=== PATIENT | female | born 1980 | race Caucasian/White ===

== ENCOUNTER 2016-11-21 12:05 | Emergency (ER) | payer MEDICARE, MEDICAID ==
--- NOTE | ~2016-11-21 | ER ---
PATIENT'S NAME: NABIL CISSE [facility] AGE: 36 Y [address] ROOM: [place] [address] LOCATION: ED ADMIT DATE: 11/21/2016 ER/Outpatient Report DISCHARGE DATE: 11/21/2016 FAMILY PHYSICIAN: Carlos Manuel Guzmán MD ATTENDING PHYSICIAN: Patrick Burns CHIEF COMPLAINT: Seizure. HISTORY OF PRESENT ILLNESS: The patient was at work today when she had a seizure. She has a known seizure disorder. She is about to start her menses and reports that she typically does get breakthrough seizures around the time of her menses. She has been having multiple small seizures over the last 2 days. Today, she was at work, she did fall and struck her head on a rack at work. That caused some bleeding and that is part of what brought her in. EMS did bring her in and stated that she was postictal on their arrival, but otherwise doing okay. The seizure was unwitnessed, the exact duration is unknown, but the patient appears to be doing relatively well. She denies any other issues and states she is taking her Vimpat and topiramate as instructed. No other acute issues. PAST MEDICAL HISTORY: Documented on the record and reviewed by me. SOCIAL HISTORY: Documented on the record and reviewed by me. MEDICATIONS: Documented on the record and reviewed by me. ALLERGIES: DOCUMENTED ON THE RECORD AND REVIEWED BY ME. REVIEW OF SYSTEMS: All systems reviewed and negative except as noted in the HPI. PHYSICAL EXAMINATION: VITAL SIGNS: Blood pressure 134/65, pulse 81, respiratory rate is 20, temperature 99.2, SpO2 is 100% on room air. GENERAL: Age-appropriate female, in no obvious pain or distress with tired appearance, but otherwise appropriate. NEURO: The patient is awake, interactive, and appropriate. Slowed mentation slightly. She has no focal asymmetry on exam, no seizure-like activity. She is oriented to person, place, and time. She follows commands in all extremities. Reflexes are normal. PATIENT'S NAME: NABIL CISSE [facility] AGE: 36 Y [address] ROOM: [place] [address] LOCATION: [facility] ADMIT DATE: 11/21/2016 ER/Outpatient Report DISCHARGE DATE: 11/21/2016 FAMILY PHYSICIAN: Carlos Manuel Guzmán MD ATTENDING PHYSICIAN: Patrick Bruns HEENT: Normocephalic, grossly atraumatic except for a 1-cm laceration over the orbital brim, lateral to the right eye that is full thickness. Scant active bleeding. Extraocular movements are intact. No palpable deformities otherwise. The lids are normal. The pupils are PERRL. The nasal mucosa is moist and pink. Oropharynx is clear without erythema or exudates. NECK: Supple. Trachea is midline. CHEST/HEART: Regular rate and rhythm with no murmurs. LUNGS: Clear to auscultation bilaterally with no rhonchi, wheezes, or rales. ABDOMEN: Soft, nontender, and nondistended. No rebound or guarding. BACK: Nontender to palpation throughout the spine. No paraspinal tenderness, no CVA tenderness. EXTREMITIES: Warm and well perfused with no obvious abnormalities or deformities. SKIN: Warm, dry, and intact. LABORATORY DATA AND X-RAYS: No imaging was obtained for this patient. Labs were obtained. Sodium 148, potassium 3.8, chloride 118, CO2 is 19, BUN is 14, GFR is greater than 60. LFTs are within normal limits. Free T4 is 0.9. TSH is 2.7. WBC is 6.7, hemoglobin 13.5, platelets are 237. IMPRESSION: 1. Breakthrough seizures. 2. Mild hyponatremia. 3. Eye laceration. EMERGENCY DEPARTMENT COURSE: The patient was evaluated as above. She has clearly had a breakthrough seizure. The wound was cleaned, irrigated, found to be free of foreign matter, and was ultimately glue closed in a multilayer fashion without anesthesia. The patient tolerated that well. No orbital involvement. She remained otherwise stable. She is able to take hydration. We will encourage her to increase her water intake today to deal with her hyponatremia. She needs to follow up with her usual provider if not improving. All questions were answered and the patient was discharged in good condition. She does not warrant head imaging as this is a ground-level fall secondary to a seizure. No other acute intervention is warranted. MD MARILYN DE LA ROSA/mc PATIENT'S NAME: NABIL CISSE [facility] AGE: 36 Y [address] ROOM: [place] [address] LOCATION: [facility] ADMIT DATE: 11/21/2016 ER/Outpatient Report DISCHARGE DATE: 11/21/2016 FAMILY PHYSICIAN: Carlos Manuel Guzmán MD ATTENDING PHYSICIAN: Patrick Burns /[id number] d: 11/21/16 2257 t: 11/22/16 1054, OUTPATIENT REPORT
[2016-11-21 13:06] LABS: BASOPHIL % 0.6 %; EOSINOPHIL # 0.2 K/uL (0.0-0.5); EOSINOPHIL % 3.1 %; HEMATOCRIT 41.3 % (33.0-46.0); HEMOGLOBIN 13.5 g/dL (11.0-15.0); IMMATURE GRANULOCYTE # 0.1 K/uL (0.0-0.3); IMMATURE GRANULOCYTE % 0.7 %; LYMPHOCYTE # 1.6 K/uL (0.8-4.0); LYMPHOCYTE % 23.8 %; MCH 28.8 pg (27.0-34.0); MCHC 32.7 gm/dL (32.0-36.5); MCV 88.2 fl (83.0-98.0); MONOCYTE # 0.5 K/uL (0.0-1.0); MONOCYTE % 6.9 %; MPV 9.6 fl (9.4-12.4); NEUTROPHIL # (ANC) 4.4 K/uL (1.8-7.8); NEUTROPHIL % 64.9 %; NRBC % 0 /100WBC (0-0.00); PLATELET COUNT 237 K/uL (150-450); RBC 4.68 M/uL (3.50-5.50); RDW-CV 13.6 % (11.9-14.6); WBC 6.7 K/uL (4.0-11.0)
[2016-11-21 13:33] LABS: CHLORIDE 118 mMol/L (96-110); POTASSIUM 3.8 mEq/L (3.7-5.1); SODIUM 148 mEq/L (135-145)
[2016-11-21 13:34] LABS: ALBUMIN 3.6 gm/dL (3.5-5.0); ALK PHOS 57 IU/L (33-138); ALT 27 IU/L (12-78); ANION GAP 14.8 (10.0-19.0); AST 14 IU/L (10-40); BLOOD UREA NITROGEN 14 mg/dL (6-24); CO2 19 mMol/L (22-32); CREATININE 0.8 mg/dL (0.5-1.1); ESTIMATED GFR (MDRD EQUATION) > 60; TOTAL BILIRUBIN 0.2 mg/dL (0.0-1.5); TOTAL PROTEIN 6.8 g/dL (6.0-8.4)
== END 2016-11-21 13:55 | disposition disaster alternative care site (69) ==
LOC: GMED 12:05
PROVIDERS: Emergency Medicine
PROC: 0HQ1XZZ Repair Face Skin, External Approach (ICD-10-PCS; principal; 2016-11-21)
DX: G40.909 Epilepsy, unspecified, not intractable, without status epilepticus (principal); S05.41XA Penetrating wound of orbit with or without foreign body, right eye, initial encounter; E87.1 Hypo-osmolality and hyponatremia; Z23 Encounter for immunization; W22.8XXA Striking against or struck by other objects, initial encounter; Y92.69 Other specified industrial and construction area as the place of occurrence of the external cause; Y99.0 Civilian activity done for income or pay

== ENCOUNTER → 2016-11-21 | Outpatient (CLI) | payer MEDICARE, MEDICAID ==
[~2016-11-21] MED LIST: KEPPRA500 MG PO; TOPAMAX100 MG PO; VIMPAT100 MG PO; VIMPAT200 MG PO
== END | disposition disaster alternative care site (69) ==
LOC: GAMB 11:48
DX: R56.9 Unspecified convulsions (principal); S05.31XA Ocular laceration without prolapse or loss of intraocular tissue, right eye, initial encounter; Z79.899 Other long term (current) drug therapy; X58.XXXA Exposure to other specified factors, initial encounter
CPT/HCPCS: A0422; A0425; A0427

== ENCOUNTER 2016-11-25 07:35 | Emergency (ER) | payer MEDICARE, MEDICAID ==
--- NOTE | ~2016-11-25 | ER ---
PATIENT'S NAME: NABIL CISSE [facility] AGE: 36 Y [address] ROOM: [place] [address] LOCATION: [facility] ADMIT DATE: 11/25/2016 ER/Outpatient Report DISCHARGE DATE: 11/25/2016 FAMILY PHYSICIAN: Carlos Manuel Guzmán MD ATTENDING PHYSICIAN: Patrick Burns CHIEF COMPLAINT: Fall with laceration. HISTORY OF PRESENT ILLNESS: The patient was at home this morning when she was getting out of bed. Upon getting out of bed, she states that her legs gave out on her. She denies loss of consciousness, palpitations, unusual feelings, or anything else and just stated that she felt like her legs were asleep for just a little bit. She now feels completely normal. She did hit her right eyebrow region and that she was concerned about possibly breaking open recent wound there. She suffers from a seizure disorder. She has been having multiple seizures this last week which is normal for her, just before her period starts which should be in the next few days. She denies any persistent headache or vision changes associated with this. She is always returned to baseline between her seizures. No other acute issues. PAST MEDICAL HISTORY: Documented on the record and reviewed by me. SOCIAL HISTORY: Documented on the record and reviewed by me. MEDICATIONS: Documented on the record and reviewed by me. ALLERGIES: DOCUMENTED ON THE RECORD AND REVIEWED BY ME. REVIEW OF SYSTEMS: All systems reviewed and negative except as noted in the HPI. PHYSICAL EXAMINATION: VITAL SIGNS: Blood pressure 128/60, pulse 85, respiratory rate 16, temperature 97.7, SpO2 is 99% on room air, pain is 1/10. GENERAL: Age-appropriate female in no obvious pain or distress. Resting comfortably in exam table. HEENT: Normocephalic, atraumatic other than a very small superficial wound to the superior lateral aspect of the orbital margin, near recent wound with no active bleeding, recent wound with glue over the top, healing well with no PATIENT'S NAME: NABIL CISSE [facility] AGE: 36 Y [address] ROOM: [place] [address] LOCATION: [facility] ADMIT DATE: 11/25/2016 ER/Outpatient Report DISCHARGE DATE: 11/25/2016 FAMILY PHYSICIAN: Carlos Manuel Guzmán MD ATTENDING PHYSICIAN: Patrick Burns active bleeding or dehiscence. The eyes are PERRL. Extraocular movements are intact. The orbital margins are nontender to palpation. Oropharynx is clear and moist without erythema or exudates. NECK: Supple. Trachea is midline. CHEST: Heart is regular rate and rhythm with no murmurs. LUNGS: Clear to auscultation bilateral. No rhonchi, wheezes, or rales. ABDOMEN: Soft, nontender, and nondistended. No rebound or guarding. BACK: Nontender to palpation throughout. No CVA tenderness. EXTREMITIES: Warm and well perfused. Normal strength without asymmetry bilateral. Intact to light sensation throughout. LABS AND X-RAYS: 1. Head CT was normal compared to prior with no acute changes per Radiology. IMPRESSION: 1. Fall. 2. Eyebrow cut, superficial. EMERGENCY DEPARTMENT COURSE: The patient evaluated as above. Her wound does not require any interventions at this time other than basic wound care. Because she was seen the other day and this is an unusual circumstance for the patient without active seizure, I did obtain head CT to ensure that she has not had any bleeding and it was without any bleeds. Prior surgical history was noted. She was otherwise feeling okay and I have no suspicion that this is a cardiac etiology. I will discharge her to home with followup instructions to per primary care physician as needed. Return if worse or other concerns at this time. MD MARILYN DE LA ROSA/annital /[id number] d: 11/25/16 1222 t: 11/29/16 1732, OUTPATIENT REPORT
== END 2016-11-25 08:24 | disposition disaster alternative care site (69) ==
LOC: GACC 07:35
DX: S01.111A Laceration without foreign body of right eyelid and periocular area, initial encounter (principal); G40.909 Epilepsy, unspecified, not intractable, without status epilepticus; W19.XXXA Unspecified fall, initial encounter

== ENCOUNTER 2017-02-28 19:24 | Emergency (ER) | payer MEDICARE, MEDICAID ==
--- NOTE | ~2017-02-28 | ER ---
PATIENT'S NAME: NABIL CISSE [facility] AGE: 36 Y [address] ROOM: [place], [place] [address] LOCATION: ED ADMIT DATE: 02/28/2017 ER/Outpatient Report DISCHARGE DATE: 02/28/2017 FAMILY PHYSICIAN: Carlos Manuel Guzmán MD ATTENDING PHYSICIAN: Katlin Ace HISTORY OF PRESENT ILLNESS: A 36-year-old female who presents today with 2 complaints. One is a Bartholin's cyst for which she has already seen her primary care Dr. Guzmán and received antibiotics for this and was told to follow up with OB in 2 days and she has appointment in 2 days. Her 2nd complaint is that she has abdominal pain, she says it is in the right lower quadrant, it feels like gas, and she describes it as crampy. It started today a few hours ago. She also has some mild pain with urination. Denies being . She has no nausea, vomiting. No fever or chills. She says her last bowel movement was today and it was normal and so she does not think she is constipated, but her pain is 10/10, she denies taking anything for pain though. No other complaints at this time. PAST MEDICAL HISTORY: Includes epilepsy. PAST SURGICAL HISTORY: Brain surgery x3, shunt, tubal ligation, left foot. SOCIAL HISTORY: She does not smoke or use drugs. She drinks socially. MEDICATIONS: Please see med list. ALLERGIES: NONE. REVIEW OF SYSTEMS: Reviewed by me and negative with the exception of those discussed in HPI. PHYSICAL EXAMINATION: VITAL SIGNS: The patient is 5 feet, 5inches, her weight is 81.6 kilos, blood pressure 120/63, heart rate 95, respiratory rate 20, temp is 97.7, and satting 100% on room air. GENERAL: The patient looks very anxious, but she does not appear toxic. She is not actively vomiting or retching. ABDOMEN: She has no epigastric tenderness, no right upper quadrant tenderness, she has no right lower quadrant tenderness either. She has no PATIENT'S NAME: NABIL CISSE [facility] AGE: 36 Y [address] ROOM: [place], [place] [address] LOCATION: ED ADMIT DATE: 02/28/2017 ER/Outpatient Report DISCHARGE DATE: 02/28/2017 FAMILY PHYSICIAN: Carlos Manuel Guzmán MD ATTENDING PHYSICIAN: Katlin Ace suprapubic tenderness, no left lower quadrant tenderness, no CVA tenderness bilaterally. She has normoactive bowel sounds as well. HEART: Rate is regular rate and rhythm. LUNGS: Her lung sounds are clear. SKIN: Warm, dry, and intact. She has no mottling. : She has a 1 cm Bartholin's cyst on the left labia, there is no real fluctuance underneath it, but it is red and tender on palpation, but not enough to drain at this time. EMERGENCY ROOM COURSE: An x-ray of abdomen was done and although there is noted to be a gas bubble in the right ascending colon, the rest of the colon just filled with stool; so, I think that is the source of her problems especially since she has no real abdominal tenderness on exam. I discussed with the patient that her x-rays look like that she is constipated and I think that is the source of her problems. We gave her a bottle of mag citrate to take home. She will follow up with her [facility] for resolution of that Bartholin's cyst. She understands reasons to come back to the ER sooner. IMPRESSION: Bartholin's cyst, constipation. MD DANA MONCADA/modl /[id number] d: 03/01/17 0327 t: 03/02/17 1843, OUTPATIENT REPORT
[2017-02-28 19:56] LABS: BILIRUBIN URINE NEGATIVE (NEGATIVE); BLOOD URINE 10 /UL (NEGATIVE); COLOR URINE YELLOW (YELLOW); GLUCOSE URINE NEGATIVE (NEGATIVE); KETONE URINE NEGATIVE (NEGATIVE); LEUKOCYTES URINE 25 /UL (NEGATIVE); NITRITE URINE NEGATIVE (NEGATIVE); PROTEIN URINE NEGATIVE (NEGATIVE); SPEC GRAVITY URINE 1.025 (1.003-1.035); TURBIDITY URINE 1+ (CLEAR); UROBILINOGEN URINE NORMAL (NORMAL)
[2017-02-28 20:06] LABS: AMORPHOUS URINE 2+ (NEGATIVE); BACTERIA URINE MANY (NEGATIVE); RBC URINE 0-2 #/HPF (NEGATIVE)
== END 2017-02-28 20:39 | disposition disaster alternative care site (69) ==
LOC: GMED 19:24
PROVIDERS: Emergency Medicine
DX: N75.0 Cyst of Bartholin's gland (principal); K59.00 Constipation, unspecified; G40.909 Epilepsy, unspecified, not intractable, without status epilepticus; Z98.890 Other specified postprocedural states; Z98.51 Tubal ligation status; Z79.899 Other long term (current) drug therapy